=== PATIENT | female | born 1950 | race Caucasian/White ===

== ENCOUNTER 2021-02-26 05:48 | Inpatient (IN) | payer MEDICARE, MEDICAID ==
[~2021-02-26] VITALS: Ht 157.5 cm; Wt 58.1 kg
[~2021-02-26 05:48] MED LIST: ASPI81TA45 PO; ATOR-2 PO; FURO20TA3 PO; GABA600T7 PO; INSU100V8 SQ; LISI5TAB7 PO; METF500T17 PO; POTA10CA PO
--- NOTE | 2021-02-26 05:57 | NUR ---
PATIENT STATES TO HAVE SOB FOR 1 MONTH. PATIENT STATES THAT SHE HAS A HEART VALVE PROBLEM AND THAT IS WHY SHE IS HAVING SOB
[2021-02-26 06:29] LABS: BASOPHILS % (AUTO) 1 % (0-1); EOSINOPHILS % (AUTO) 4 % (1-7); LYMPHOCYTES % (AUTO) 33 % (22-44); MEAN CORPUSCULAR HEMOGLOBIN 24.2 pg (27.0-34.8); MEAN CORPUSCULAR HGB CONC 32.1 g/dL (32.4-35.8); MEAN PLATELET VOLUME 8.8 fL (7.4-10.4); MONOCYTES % (AUTO) 8 % (2-9); NEUTROPHILS % (AUTO) 54 % (42-75); PLATELET COUNT 196 x10^3/uL (130-400); RED BLOOD COUNT 5.14 x10^6/uL (3.82-5.3); RED CELL DISTRIBUTION WIDTH 14.6 % (9.6-15.2)
[2021-02-26 06:40] LABS: ALBUMIN 2.9 g/dL (3.4-5.0); ANION GAP 5 mmol/L (5-15); CHLORIDE 105 mmol/L (98-107); CREATININE 0.66 mg/dL (0.55-1.02)
[2021-02-26 06:44] LABS: TROPONIN I 0.049 ng/mL (0.000-0.045)
--- NOTE | 2021-02-26 06:57 | NUR ---
Patient during bedside report with day shift CARLY reza stated that she has an angioplasty procedure last week for her heart as well
--- NOTE | 2021-02-26 07:31 | NUR ---
LATE ENTRY FOR 0700, SBAR RPT REC'D AND ASSUMED PT CARE.
--- NOTE | 2021-02-26 07:31 | NUR ---
PT OOB AND AMBULATED TO BATHROOM UPRIGHT STEADY GAIT. VOIDED AND RTN TO ROOM W/O INCIDENT. PT TEARFUL AND C/O "I JUST CAN'T BREATHE" PT SP02 = 93-96% ON RA LUNG SOUNDS CLEAR T/O. PT SEEMS ANXIOUS. XRAY AND LAB RESULTS PENDING. PT GIVEN VERBAL REASURANCE WITH SOME EFFECT. 02 2LNC PLACED FOR COMFORT. CALL LIGHT W/I REACH
--- NOTE | 2021-02-26 07:34 | NUR ---
TESTS RESULTED AND CHART UP FOR RECHECK. PT AWARE.
[2021-02-26] MEDS ORDERED: FUROSEMIDE 20 MG/2 ML ONE (07:37)
[2021-02-26] MEDS ORDERED: LORazepam 2 MG/ML, 1ML ONE (07:38)
--- NOTE | 2021-02-26 07:43 | NUR ---
PT INCREASING ANXIETY DISCUSSED WITH DR PASCAL, NEW ORDERS REC'D. PT MED NOTED, COMMODE AT BEDSIDE AND CALL LIGHT W/I REACH. PT VERBALIZES UNDERSTANDING TO USE CALL LIGHT IF SHE NEEDS TO GET OOB TO USE COMMODE.
--- NOTE | 2021-02-26 07:53 | NUR ---
DR LANGLEY SPOKE WITH Pb LAGUERRE
[2021-02-26] MEDS ORDERED: LORazepam 2 MG/ML, 1ML IVPush ONE (08:00)
[2021-02-26] MEDS ORDERED: FUROSEMIDE 20 MG/2 ML IV ONE (08:00)
--- NOTE | 2021-02-26 08:04 | NUR ---
DR PACSAL AT BEDSIDE, POC DISCUSSED AND QUESTIONS ANSWERED. PLAN FOR ADMIT DISCUSSED AND PT VERBALIZES AGREEMENT.
[2021-02-26] MEDS ORDERED: morphine SULFATE 10 MG/ML, 1ML IVPush PRN (08:30)
[2021-02-26] MEDS ORDERED: ASPIRIN 81 MG TABLET CHEW PO ONE (08:30)
[2021-02-26] MEDS ORDERED: ONDANSETRON 2MG/ML, 2ML IVPush PRN (08:30)
[2021-02-26] MEDS ORDERED: ENALAPRILAT 1.25 MG/ML, 2ML IVPush PRN (08:30)
[2021-02-26] MEDS ORDERED: NITROGLYCERIN 0.4 MG BOTTLE (25 TABS) SL PRN (08:30)
[2021-02-26] MEDS ORDERED: POLYETHYLENE GLYCOL 17 GM PACKET PO PRN (08:30)
[2021-02-26] MEDS ORDERED: HYDROcodone/APAP 5/325 TABLET PO PRN (08:30)
[2021-02-26 09:50] VITALS: BP 120/81
[2021-02-26] MEDS: ASPIRIN 81 MG TABLET EC PO SCH (11:10)
[2021-02-26 12:36] VITALS: BP 119/83
[2021-02-26] MEDS ORDERED: LORazepam 1MG TABLET PO PRN (14:30)
[2021-02-26] MEDS: FUROSEMIDE 20 MG/2 ML IV SCH (17:49)
[2021-02-26] MEDS ORDERED: GLUCAGON 1 MG IM PRN (20:00)
[2021-02-26] MEDS ORDERED: DEXTROSE 4 GM TAB.CHEW PO PRN (20:00)
[2021-02-26] MEDS ORDERED: DEXTROSE 50%, 50ML SYRINGE IVPush PRN (20:00)
[2021-02-26] MEDS: SODIUM CHLORIDE FLUSH 10ML SYR IVF SCH (21:00)
[2021-02-26 21:54] VITALS: BP 101/71
[2021-02-26] MEDS: ATORVASTATIN 40 MG TABLET PO SCH (22:26)
[2021-02-26] MEDS: ACETAMINOPHEN 325 MG TABLET PO PRN (22:26)
[2021-02-26] MEDS: INSULIN LISPRO 100 UNITS/ML, PEN SQ-INSULIN SCH (22:27)
[2021-02-27] VITALS (9 sets, daily range): BP systolic 70–113; BP diastolic 33–80
[2021-02-27] MEDS: ACETAMINOPHEN 325 MG TABLET PO PRN ×3 (03:18→20:14)
[2021-02-27 06:23] LABS: BASOPHILS % (AUTO) 1 % (0-1); EOSINOPHILS % (AUTO) 5 % (1-7); LYMPHOCYTES % (AUTO) 34 % (22-44); MEAN CORPUSCULAR HEMOGLOBIN 24.5 pg (27.0-34.8); MEAN CORPUSCULAR HGB CONC 32.2 g/dL (32.4-35.8); MEAN PLATELET VOLUME 9.2 fL (7.4-10.4); MONOCYTES % (AUTO) 12 % (2-9); NEUTROPHILS % (AUTO) 49 % (42-75); PLATELET COUNT 219 x10^3/uL (130-400); RED BLOOD COUNT 5.73 x10^6/uL (3.82-5.3)
[2021-02-27 07:23] LABS: CHLORIDE 102 mmol/L (98-107)
[2021-02-27] MEDS: FUROSEMIDE 20 MG/2 ML IV SCH (07:30)
[2021-02-27 07:31] LABS: ALANINE AMINOTRANSFERASE 19 U/L (12-78); ALBUMIN 2.9 g/dL (3.4-5.0); ALKALINE PHOSPHATASE 96 U/L (45-117); ANION GAP 7 mmol/L (5-15); CALCIUM 9.5 mg/dL (8.5-10.1); CREATININE 0.61 mg/dL (0.55-1.02); TOTAL PROTEIN 6.6 g/dL (6.4-8.2)
[2021-02-27] MEDS: SODIUM CHLORIDE FLUSH 10ML SYR IVF SCH ×2 (08:02→20:19)
[2021-02-27] MEDS: ASPIRIN 81 MG TABLET EC PO SCH (08:05)
[2021-02-27] MEDS: INSULIN LISPRO 100 UNITS/ML, PEN SQ-INSULIN SCH ×4 (08:05→20:15)
[2021-02-27] MEDS ORDERED: SODIUM CHLORIDE 0.9%, 250ML IVBOLUS ONE ×2 (11:00→12:00)
[2021-02-27] MEDS ORDERED: POTASSIUM CHLORIDE 20 MEQ TAB.ER.PRT ONE (17:14)
[2021-02-27] MEDS ORDERED: POTASSIUM CHLORIDE 20 MEQ TAB.ER.PRT PO ONE (17:30)
[2021-02-27] MEDS: ATORVASTATIN 40 MG TABLET PO SCH (20:14)
[2021-02-28 01:42] VITALS: BP 99/64
[2021-02-28] MEDS: ACETAMINOPHEN 325 MG TABLET PO PRN (04:27)
[2021-02-28 06:37] LABS: ANION GAP 7 mmol/L (5-15); CALCIUM 8.7 mg/dL (8.5-10.1); CHLORIDE 105 mmol/L (98-107); CREATININE 0.57 mg/dL (0.55-1.02)
[2021-02-28] MEDS: SODIUM CHLORIDE FLUSH 10ML SYR IVF SCH (08:36)
[2021-02-28] MEDS: ASPIRIN 81 MG TABLET EC PO SCH (08:42)
[2021-02-28] MEDS: INSULIN LISPRO 100 UNITS/ML, PEN SQ-INSULIN SCH ×2 (08:43→11:58)
[2021-02-28] MEDS ORDERED: FUROSEMIDE 20 MG/2 ML IV SCH (09:00)
[2021-02-28 09:21] VITALS: BP 96/63
[2021-02-28 11:04] VITALS: BP 95/66
[2021-02-28 12:06] VITALS: BP 96/68
[2021-02-28] MEDS ORDERED: INSU100V8 SQ (13:30)
== END 2021-02-28 15:10 | disposition home or self-care (01) | DRG 280 ==
LOC: ED 06:17 → EDIP 08:09 → 5SO 09:25
PROVIDERS: ADMIT Internal Medicine; ATTEND Hospitalist
DX: I35.0 Nonrheumatic aortic (valve) stenosis (principal); I21.4 Non-ST elevation (NSTEMI) myocardial infarction; I50.43 Acute on chronic combined systolic (congestive) and diastolic (congestive) heart failure; E46 Unspecified protein-calorie malnutrition; E87.1 Hypo-osmolality and hyponatremia; I42.9 Cardiomyopathy, unspecified; I11.0 Hypertensive heart disease with heart failure; E78.5 Hyperlipidemia, unspecified; G62.9 Polyneuropathy, unspecified; I20.9 Angina pectoris, unspecified; I27.20 Pulmonary hypertension, unspecified; I77.810 Thoracic aortic ectasia; I95.1 Orthostatic hypotension; F41.9 Anxiety disorder, unspecified; Z91.19 Patient's noncompliance with other medical treatment and regimen; Z90.49 Acquired absence of other specified parts of digestive tract; Z83.3 Family history of diabetes mellitus; Z82.49 Family history of ischemic heart disease and other diseases of the circulatory system; Z91.041 Radiographic dye allergy status; Z87.891 Personal history of nicotine dependence
CPT/HCPCS: 36415; 71045; 80048; 80053; 82040; 82962; 83735; 83880; 84100; 84443; 84484; 85025; 93005; 93922; 93925; 96374; 96375; G0378; J1815; J1940; J2060; J7050

== ENCOUNTER 2021-03-14 08:44 | Inpatient (IN) | payer MEDICARE, MEDICAID ==
[~2021-03-14] VITALS: Ht 157.5 cm; Wt 56.8 kg
[2021-03-14] MEDS ORDERED: ONDANSETRON 2MG/ML, 2ML IV PRN (10:30)
[2021-03-14 10:32] VITALS: BP 112/82
[2021-03-14 10:57] LABS: BASOPHILS % (AUTO) 1 % (0-1); EOSINOPHILS % (AUTO) 2 % (1-7); LYMPHOCYTES % (AUTO) 32 % (22-44); MEAN CORPUSCULAR HEMOGLOBIN 24.2 pg (27.0-34.8); MEAN CORPUSCULAR HGB CONC 31.8 g/dL (32.4-35.8); MONOCYTES % (AUTO) 7 % (2-9); NEUTROPHILS % (AUTO) 58 % (42-75); PLATELET COUNT 203 x10^3/uL (130-400); RED BLOOD COUNT 5.56 x10^6/uL (3.82-5.3); RED CELL DISTRIBUTION WIDTH 15.2 % (9.6-15.2)
[2021-03-14] MEDS ORDERED: PLEASE ENTER HEIGHT AND WEIGHT MC SCH (11:00)
[2021-03-14] MEDS ORDERED: methylPREDNISolone SOD SUCC 125 MG/2 ML ONE (11:03)
[2021-03-14 11:06] LABS: INTERNATIONAL NORMALIZED RATIO 1.08 (0.93-1.1); PROTHROMBIN TIME 11.5 Seconds (9.6-11.5)
[2021-03-14 11:11] LABS: ALBUMIN 3.1 g/dL (3.4-5.0); ANION GAP 7 mmol/L (5-15); CALCIUM 8.3 mg/dL (8.5-10.1); CHLORIDE 111 mmol/L (98-107)
[2021-03-14 11:16] LABS: ALANINE AMINOTRANSFERASE 19 U/L (12-78); ALKALINE PHOSPHATASE 92 U/L (45-117); BILIRUBIN,TOTAL 1.1 mg/dL (0.2-1.0); CREATININE 0.53 mg/dL (0.55-1.02); TOTAL PROTEIN 6.5 g/dL (6.4-8.2)
[2021-03-14] MEDS ORDERED: FENTANYL PF 250 MCG/5ML ONE (11:18)
[2021-03-14] MEDS ORDERED: CEFAZOLIN 1,000 MG ONE (11:19)
[2021-03-14] MEDS ORDERED: PROPOFOL 10 MG/ML, 20ML ONE (11:25)
[2021-03-14] MEDS ORDERED: ROCURONIUM 10 MG/ML,10ML ONE (11:25)
[2021-03-14] MEDS ORDERED: SUCCINYLCHOLINE 20 MG/ML, 10ML ONE (11:25)
[2021-03-14] MEDS ORDERED: DEXAMETHASONE 4 MG/ML, 1ML ONE (11:25)
[2021-03-14] MEDS ORDERED: EPINEPHRINE 1 MG/ML, 1ML ONE (11:25)
[2021-03-14] MEDS ORDERED: ONDANSETRON 2MG/ML, 2ML ONE (11:25)
[2021-03-14] MEDS ORDERED: methylPREDNISolone SOD SUCC 125 MG/2 ML IVPush SCH (11:30)
[2021-03-14] MEDS ORDERED: SODIUM CHLORIDE 0.9% 1,000 ML IV SCH (11:30)
[2021-03-14] MEDS ORDERED: EPHEDRINE 50 MG/ML, 1ML ONE (11:37)
[2021-03-14] MEDS ORDERED: PROTAMINE SULFATE 10 MG/ML, 5ML ONE (12:11)
[2021-03-14] MEDS ORDERED: ACETAMINOPHEN 325 MG TABLET PO PRN (12:30)
[2021-03-14] MEDS ORDERED: ASPIRIN 81 MG TABLET EC PO SCH (12:30)
[2021-03-14] MEDS ORDERED: LABETALOL 20 MG/4 ML IVPush PRN (12:30)
[2021-03-14] MEDS ORDERED: POTASSIUM CHLORIDE 20 MEQ TAB.ER.PRT PO ONE (12:30)
[2021-03-14] MEDS ORDERED: FUROSEMIDE 40 MG/4 ML IV ONE (12:30)
[2021-03-14] MEDS ORDERED: GLUCAGON 1 MG IM PRN (12:30)
[2021-03-14] MEDS ORDERED: GABAPENTIN 300 MG CAPSULE PO PRN (12:30)
[2021-03-14] MEDS ORDERED: hydrALAzine 20 MG/ML, 1ML IVPush PRN (12:30)
[2021-03-14] MEDS ORDERED: DEXTROSE 50%, 50ML SYRINGE IVPush PRN (12:30)
[2021-03-14] MEDS ORDERED: DEXTROSE 4 GM TAB.CHEW PO PRN (12:30)
[2021-03-14] MEDS ORDERED: FENTANYL PF 100 MCG/2ML ONE (13:20)
[2021-03-14] MEDS ORDERED: FENTANYL PF 100 MCG/2ML IVPush PRN (13:30)
[2021-03-14] MEDS ORDERED: HYDROcodone/APAP 5/325 TABLET ONE (13:37)
[2021-03-14] MEDS: HYDROcodone/APAP 5/325 TABLET PO PRN ×2 (13:39→18:52)
[2021-03-14] MEDS ORDERED: methylPREDNISolone SOD SUCC 125 MG/2 ML IVPush ONE (15:30)
[2021-03-14] MEDS: FUROSEMIDE 40 MG TABLET PO SCH (16:15)
[2021-03-14 19:43] VITALS: BP 109/76
[2021-03-14] MEDS ORDERED: ATORVASTATIN 40 MG TABLET PO SCH (21:00)
[2021-03-14] MEDS ORDERED: INSULIN GLARGINE 100 UNITS/ML, PEN SQ-INSULIN SCH (21:00)
[2021-03-14] MEDS: metFORMIN 500 MG TABLET PO SCH (21:11)
[2021-03-14] MEDS: POTASSIUM CHLORIDE 20 MEQ TAB.ER.PRT PO SCH (21:11)
[2021-03-14] MEDS: SODIUM CHLORIDE FLUSH 10ML SYR IVF SCH (21:12)
[2021-03-15 01:37] VITALS: BP 122/72
[2021-03-15] MEDS: HYDROcodone/APAP 5/325 TABLET PO PRN (03:01)
[2021-03-15 05:47] LABS: BASOPHILS % (AUTO) 0 % (0-1); EOSINOPHILS % (AUTO) 0 % (1-7); LYMPHOCYTES % (AUTO) 10 % (22-44); MEAN CORPUSCULAR HGB CONC 31.3 g/dL (32.4-35.8); MEAN PLATELET VOLUME 8.8 fL (7.4-10.4); MONOCYTES % (AUTO) 5 % (2-9); NEUTROPHILS % (AUTO) 85 % (42-75); PLATELET COUNT 172 x10^3/uL (130-400); RED BLOOD COUNT 5.26 x10^6/uL (3.82-5.3); RED CELL DISTRIBUTION WIDTH 15.7 % (9.6-15.2)
[2021-03-15 05:59] LABS: ANION GAP 8 mmol/L (5-15); CALCIUM 8.1 mg/dL (8.5-10.1); CHLORIDE 104 mmol/L (98-107); CREATININE 0.86 mg/dL (0.55-1.02)
[2021-03-15 07:25] VITALS: BP 115/74
[2021-03-15] MEDS: FUROSEMIDE 40 MG TABLET PO SCH (08:24)
[2021-03-15] MEDS: metFORMIN 500 MG TABLET PO SCH (08:24)
[2021-03-15] MEDS: POTASSIUM CHLORIDE 20 MEQ TAB.ER.PRT PO SCH (08:24)
[2021-03-15] MEDS: SODIUM CHLORIDE FLUSH 10ML SYR IVF SCH (08:25)
[2021-03-15] MEDS ORDERED: ASPIRIN 81 MG TABLET EC PO SCH (09:00)
[2021-03-15] MEDS ORDERED: FUROSEMIDE 20 MG/2 ML IV ONE (12:30)
[2021-03-15 13:04] VITALS: BP 125/76
[2021-03-15] MEDS ORDERED: POTA-143 PO (14:14)
[2021-03-15] MEDS ORDERED: ACET325T26 PO (14:14)
[2021-03-15] MEDS ORDERED: FURO40TA6 PO (14:14)
== END 2021-03-15 15:40 | disposition home or self-care (01) | DRG 266 ==
LOC: ORIP 08:44 → 5SO 15:10
PROVIDERS: ADMIT Internal Medicine Cardiovascular Disease; ATTEND Internal Medicine Cardiovascular Disease
PROC: B3101ZZ Fluoroscopy of Thoracic Aorta using Low Osmolar Contrast (ICD-10-PCS; 2021-03-14)
PROC: B24BZZ4 Ultrasonography of Heart with Aorta, Transesophageal (ICD-10-PCS; 2021-03-14)
PROC: 02RF38Z Replacement of Aortic Valve with Zooplastic Tissue, Percutaneous Approach (ICD-10-PCS; principal; 2021-03-14 12:00)
DX: I35.0 Nonrheumatic aortic (valve) stenosis (principal); Z00.6 Encounter for examination for normal comparison and control in clinical research program; I50.43 Acute on chronic combined systolic (congestive) and diastolic (congestive) heart failure; I42.9 Cardiomyopathy, unspecified; E11.9 Type 2 diabetes mellitus without complications; E78.5 Hyperlipidemia, unspecified; G47.30 Sleep apnea, unspecified; I11.0 Hypertensive heart disease with heart failure; I25.10 Atherosclerotic heart disease of native coronary artery without angina pectoris; I71.2 Thoracic aortic aneurysm, without rupture; Z87.891 Personal history of nicotine dependence; Z20.822 Contact with and (suspected) exposure to COVID-19; Z79.84 Long term (current) use of oral hypoglycemic drugs
CPT/HCPCS: 33361; 36415; 71045; 80048; 80053; 82962; 83880; 85025; 85347; 85610; 87635; 92986; 93005; 93306; 93355; C1760; C1769; C1894; G0378; J0171; J0690; J1100; J2405; J2704; J2720; J3010; J0330; J1815; J2930; Q9967